=== PATIENT | female | born 1985 | race Caucasian/White ===

== ENCOUNTER → 2017-04-16 | Outpatient (CLI) | payer OTHER ==
[~2017-04-16] MED LIST: IOPAMIDOL (ISOVUE-300) 100 ML BTL ONE
== END ==
LOC: FIMAGING 14:14
PROVIDERS: ATTEND Ophthalmology Retina Specialist
DX: H02.841 Edema of right upper eyelid (principal); H54.7 Unspecified visual loss
CPT/HCPCS: Q9967

== ENCOUNTER → 2017-09-03 | Outpatient (CLI) | payer OTHER | LOC: FIMAGING 13:18 | PROVIDERS: ATTEND Physician Assistant Medical | DX: Z30.431 Encounter for routine checking of intrauterine contraceptive device (principal) ==

== ENCOUNTER 2018-03-20 20:41 | Emergency (ER) | payer OTHER ==
--- NOTE | 2018-03-20 20:57 | EDPHY ---
H & P Stated Complaint: RLQ PAIN, RADIATING TO BACK X 11 HOURS - Personal History LMP (Females 10-55): Unknown Current Tetanus Diphtheria and Acellular Pertussis (TDAP): Yes - Medical/Surgical History Hx Asthma: No Hx Chronic Respiratory Disease: No Hx Diabetes: No Hx Cardiac Disease: No Hx Renal Disease: No Hx Cirrhosis: No Hx Alcoholism: No Hx HIV/AIDS: No Hx Splenectomy or Spleen Trauma: No Other PMH: R EYE SURGERIES - Social History Smoking Status: Never smoked Time Seen by Provider: 03/20/18 20:56 Constitutional: Initial Vital Signs Temperature (C) 36.4 C 03/20/18 20:45 Heart Rate 86 03/20/18 20:45 Respiratory Rate 16 03/20/18 20:45 Blood Pressure 130/79 H 03/20/18 20:45 O2 Sat (%) 97 03/20/18 20:45 O2 Delivery Mode Room Air Allergies/Adverse Reactions: No Known Allergies Allergy (Verified 03/20/18 20:44) Home Medications: Medication Instructions Recorded NK [No Known Home Meds] 03/20/18 Medical Decision Making - Diagnostics Imaging Results: Imaging Impressions Abdomen Ultrasound 03/20/18 21:12 Impression: Possible mesenteric adenitis. No indirect evidence of appendicitis. Results discussed with Dr. Rodriguez at 10:39 PM. Pelvic/Renal Ultrasound 03/20/18 21:12 Impression: 1. Prominent pelvic venous structures raise the possibility of pelvic venous congestion syndrome. 2. Small amount of free fluid adjacent to the right ovary. Perhaps this patient has ruptured a small cyst. Results discussed with Dr. Monzon at 10:[address] 03/20/18 23:01 Impression: 1. Proximal colonic constipation. 2. Normal appendix . 3. 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 4. Right adnexal cyst (dominant follicle) with a small amount of adjacent free fluid confirmed. 5. Incidental liver cysts and nonobstructive nephrolithiasis. Results discussed with Dr. Rodriguez at 11:33 PM. General information for patients regarding this examination can be found at [email or web address]. If you have questions or comments about this report, please contact me at [phone] (hospital) or [phone] (cell). ED Course/Re-evaluation: CHIEF COMPLAINT: Right lower abdominal pain HISTORY OF PRESENT ILLNESS: The patient is a 32 y/o female complaining of sudden onset right lower abdominal pain, onset 11 hours ago. She initially thought that this pain was due to gas. However, the pain persisted and she had to leave work early. She was able to drive home, but felt uncomfortable due to the consistent pain. When she presses on her abdomen the pain increases and is always in her right lower quadrant even if she doesn't press there. Last PO was at 18:00, 3 hours ago. She was hungry, but didn't eat as much as normal due to the discomfort. No fever , headache, chest pain, shortness of breath, urinary or bowel complaints, numbness, paresthesias. REVIEW OF SYSTEMS: A comprehensive 10 system review of systems is otherwise negative aside from elements mentioned in the history of present illness and medical decision making. PHYSICAL EXAM: HR, BP, O2 Sat, RR. Temp noted General Appearance: Alert, well hydrated, appropriate, and non-toxic appearing. Head: Atraumatic without scalp tenderness or obvious injury Eyes: Pupils equal, round, reactive to light and accommodation, EOMI, no trauma , no injection. Ears: Clear bilaterally, no perforation, normal landmarks Nose: Atraumatic, no rhinorrhea, clear. Throat: There is no erythema or exudates, no lesions, normal tonsils, mucus membranes moist. Neck: Supple, 2+ carotid upstroke, nontender, no lymphadenopathy. Respiratory: No retractions, no distress, no wheezes, and no accessory muscle use. Lungs are clear to auscultation bilaterally. Cardiovascular: Regular rate and rhythm, no murmurs, rubs, or gallops. Bilateral carotid, radial, dorsalis pedis, and posterior tibial pulses intact. Good capillary refill all extremities. Gastrointestinal: RLQ tenderness to palpation, positive McBurney's point, positive peritoneal signs. Abdomen is soft, non-distended, no masses, no rebound , no guarding. Musculoskeletal: Normal active ROM of all extremities, atraumatic. Neurological: Alert, appropriate, and interactive. The patient has normal DTRs and non-focal cranial nerves, motor, sensory, and cerebellar exam. Skin: No rashes, good turgor, no nodules on palpation. Past medical history: Denies Past surgical history: Right eye surgeries Family history: Denies Social history: Lives in [place], , employed DIAGNOSTICS/PROCEDURES/CRITICAL CARE TIME: Abdominal and pelvic US: DIFFERENTIAL DIAGNOSIS: The differential diagnosis for the patient's abdominal pain included but was not limited to ovarian cyst, pelvic inflammatory disease, ovarian torsion, urinary tract infection, ectopic , cholecystitis, and appendicitis. MEDICAL DECISION MAKING: The patient is a 32 y/o female complaining of sudden onset right lower abdominal pain, onset 11 hours ago. On exam she has right lower quadrant tenderness with palpation. She does have a positive McBurney's point. Labs and abdominal and pelvic US ordered; 1L IV NS, 30mg IV Toradol, and 100mcg IV Fentanyl administered. 924: Patient has a WBC of 10.95 ; imaging still pending. 2239: Patient care turned over to Dr. Sanabria at shift change. Imaging studies still pending. (Yossi Monzon) 230: Patient was signed over to me at 11:00 p.m.. Follow-up patient's ultrasounds. The patient has had 2 ultrasounds 1 that was looking for her appendix and the other that was evaluating her ovaries. Appendix was unable to be visualized on the ultrasound, however the ultrasound of her pelvis did show a small right ovarian cyst with a small amount of free fluid. This may be the cause of her pain however I went and talked to her extensively and reexamine there and she still has significant right lower quadrant abdominal pain. We had a discussion about further imaging including a CT scan abdomen pelvis with IV contrast a additionally rule out appendicitis given her ultrasound did not show this. After long discussion risk versus benefit was discussed she would like to proceed with CT scan to rule out appendicitis. Additionally the patient states that she still has significant pain. I have ordered her 2nd L fluid as well as 0.5 mg IV Dilaudid. She initially declined any pain medication. She did received Toradol earlier. CT scan abdomen pelvis with IV contrast called to me by Dr. Malave. The patient has a normal appendix visualized. I updated the patient about these results. Clinically I feel that her pain is due to a ruptured ovarian cyst. Explain should follow up with OBGYN. Also there is some concern about pelvic congestion syndrome on ultrasound and CT. I have discussed this with the patient. I do not believe this is causing her acute sudden-onset pain. Recommend follow up with OBGYN Return precautions discussed with the patient she understands return emergency room if develops worsening abdominal pain, pelvic pain, vomiting, fever, not doing well. Patient requesting and [place] take-home pack which I will provide for her. She feels much better after IV Dilaudid. Abdomen is soft nontender at this time. She feels comfortable going home. I discussed return precautions with her she understands return emergency room she develops worsening abdominal pain, pelvic pain, fever, vomiting, not doing well. (Nilay Sanabria) - Data Points Laboratory Results: Laboratory Results 03/20/18 21:05 03/20/18 21:05 03/20/18 03/20/18 03/20/18 21:58 21:41 21:05 WBC RBC Hgb POC Hgb 17.0 gm/dL H gm/dL (12.6-16.3) Hct POC Hct 50 % H % (38-47) MCV MCH MCHC RDW Plt Count MPV Neut % (Auto) Lymph % (Auto) Pender % (Auto) Eos % (Auto) Baso % (Auto) Nucleat RBC Rel Count Absolute Neuts (auto) Absolute Lymphs (auto) Absolute Monos (auto) Absolute Eos (auto) Absolute Basos (auto) Absolute Nucleated RBC Immature Gran % Immature Gran # POC Sodium 142 mEq/L mEq/L (135-145) Sodium POC Potassium 3.7 mEq/L mEq/L (3.3-5.0) Potassium POC Chloride 104 mEq/L mEq/L (97-110) Chloride Carbon Dioxide POC Total CO2 25 mEq/L mEq/L (22-31) Anion Gap POC BUN 16 mg/dL mg/dL (7-23) BUN Creatinine POC Creatinine 0.8 mg/dL mg/dL (0.6-1.0) Estimated GFR Glucose POC Glucose 92 mg/dL mg/dL (70-100) Calcium Total Bilirubin Conjugated Bilirubin Unconjugated Bilirubin AST ALT Alkaline Phosphatase Total Protein Albumin Lipase Beta HCG, Qual NEGATIVE Urine Color PALE YELLOW Urine Appearance CLEAR Urine pH 6.0 (5.0-7.5) Ur Specific [place] 1.011 (1.002-1.030) Urine Protein NEGATIVE (NEGATIVE) Urine Ketones NEGATIVE (NEGATIVE) Urine Blood NEGATIVE (NEGATIVE) Urine Nitrate NEGATIVE (NEGATIVE) Urine Bilirubin NEGATIVE (NEGATIVE) Urine Urobilinogen NEGATIVE EU EU (0.2-1.0) Ur Leukocyte Esterase NEGATIVE (NEGATIVE) Urine RBC 1-3 /hpf /hpf (0-3) Urine WBC 1-3 /hpf /hpf (0-3) Ur Epithelial Cells TRACE /lpf /lpf (NONE-1+) Urine Bacteria TRACE /hpf H /hpf (NONE SEEN) Urine Mucus TRACE /lpf /lpf (NONE-1+) Urine Glucose NEGATIVE (NEGATIVE) 03/20/18 03/20/18 21:05 21:05 WBC 10.95 10^3/uL H 10^3/uL (3.80-9.50) RBC 4.77 10^6/uL 10^6/uL (4.18-5.33) Hgb 14.8 g/dL g/dL (12.6-16.3) POC Hgb Hct 44.8 % % (38.0-47.0) POC Hct MCV 93.9 fL fL (81.5-99.8) MCH 31.0 pg pg (27.9-34.1) MCHC 33.0 g/dL g/dL (32.4-36.7) RDW 12.7 % % (11.5-15.2) Plt Count 242 10^3/uL 10^3/uL (150-400) MPV 9.8 fL fL (8.7-11.7) Neut % (Auto) 56.8 % % (39.3-74.2) Lymph % (Auto) 35.9 % % (15.0-45.0) Pender % (Auto) 5.8 % % (4.5-13.0) Eos % (Auto) 0.7 % % (0.6-7.6) Baso % (Auto) 0.5 % % (0.3-1.7) Nucleat RBC Rel Count 0.0 % % (0.0-0.2) Absolute Neuts (auto) 6.21 10^3/uL 10^3/uL (1.70-6.50) Absolute Lymphs (auto) 3.93 10^3/uL H 10^3/uL (1.00-3.00) Absolute Monos (auto) 0.64 10^3/uL 10^3/uL (0.30-0.80) Absolute Eos (auto) 0.08 10^3/uL 10^3/uL (0.03-0.40) Absolute Basos (auto) 0.06 10^3/uL 10^3/uL (0.02-0.10) Absolute Nucleated RBC 0.00 10^3/uL 10^3/uL (0-0.01) Immature Gran % 0.3 % % (0.0-1.1) Immature Gran # 0.03 10^3/uL 10^3/uL (0.00-0.10) POC Sodium Sodium 142 mEq/L mEq/L (135-145) POC Potassium Potassium 4.2 mEq/L mEq/L (3.5-5.2) POC Chloride Chloride 106 mEq/L mEq/L (97-110) Carbon Dioxide 23 mEq/l mEq/l (22-31) POC Total CO2 Anion Gap 13 mEq/L mEq/L (6-14) POC BUN BUN 17 mg/dL mg/dL (7-23) Creatinine 0.8 mg/dL mg/dL (0.6-1.0) POC Creatinine Estimated GFR > 60 Glucose 97 mg/dL mg/dL (70-100) POC Glucose Calcium 10.0 mg/dL mg/dL (8.5-10.4) Total Bilirubin 0.4 mg/dL mg/dL (0.1-1.4) Conjugated Bilirubin 0.2 mg/dL mg/dL (0.0-0.5) Unconjugated Bilirubin 0.2 mg/dL mg/dL (0.0-1.1) AST 21 IU/L IU/L (14-46) ALT 19 IU/L IU/L (9-52) Alkaline Phosphatase 76 IU/L IU/L (38-126) Total Protein 8.7 g/dL H g/dL (6.3-8.2) Albumin 5.2 g/dL H g/dL (3.5-5.0) Lipase 106 IU/L IU/L (23-300) Beta HCG, Qual Urine Color Urine Appearance Urine pH Ur Specific [place] Urine Protein Urine Ketones Urine Blood Urine Nitrate Urine Bilirubin Urine Urobilinogen Ur Leukocyte Esterase Urine RBC Urine WBC Ur Epithelial Cells Urine Bacteria Urine Mucus Urine Glucose Medications Given: Discontinued Medications Fentanyl (Sublimaze) 100 mcg IVP EDNOW ONE Stop: 03/20/18 21:13 Last Admin: 03/20/18 23:05 Dose: Not Given Hydromorphone HCl (Dilaudid) 0.5 mg IVP EDNOW ONE Stop: 03/20/18 23:02 Last Admin: 03/20/18 23:04 Dose: 0.5 mg Sodium Chloride (Ns) 1,000 mls @ 0 mls/hr IV EDNOW ONE; Wide Open PRN Reason: Protocol Stop: 03/20/18 21:13 Last Admin: 03/20/18 21:32 Dose: 1,000 mls Ketorolac Tromethamine (Toradol) 30 mg IVP EDNOW ONE Stop: 03/20/18 21:13 Last Admin: 03/20/18 21:32 Dose: 30 mg Point of Care Test Results: Chemistry 03/20/18 21:41 POC Sodium 142 mEq/L mEq/L (135-145) POC Potassium 3.7 mEq/L mEq/L (3.3-5.0) POC Chloride 104 mEq/L mEq/L (97-110) POC Total CO2 25 mEq/L mEq/L (22-31) POC BUN 16 mg/dL mg/dL (7-23) POC Creatinine 0.8 mg/dL mg/dL (0.6-1.0) POC Glucose 92 mg/dL mg/dL (70-100) ISTAT H&H 03/20/18 21:41 POC Hgb 17.0 gm/dL H gm/dL (12.6-16.3) POC Hct 50 % H % (38-47) Departure - Departure Disposition: Home, Routine, Self-Care Clinical Impression: Abdominal pain, Ovarian cyst, Ruptured ovarian cyst Condition: Good Instructions: Ovarian Cyst (ED), Acute Abdominal Pain (ED), Pelvic Pain in Women (ED), Abdominal Pain (ED), Ruptured Ovarian Cyst (ED) Referrals: Isabelle Manjarrez MD [Primary Care Provider] - As per Instructions Angela Gaytan MD [Medical Doctor] - As per Instructions Report Scribed for: Yossi Monzon Report Scribed by: Peggy Pickett Date of Report: 03/20/18 Time of Report: 20:58
[2018-03-20] MEDS ORDERED: KETOROLAC 30 MG/1 ML SDV IVP ONE (21:12)
[2018-03-20] MEDS ORDERED: fentaNYL 100 MCG/2 ML INJ IVP ONE (21:12)
[2018-03-20] MEDS ORDERED: NS 1,000 ML IV ONE (21:12)
[2018-03-20 21:22] LABS: PLATELET COUNT 242 10^3/uL (150-400)
[2018-03-20] MEDS ORDERED: ONDANSETRON 4 MG/2 ML VIAL ONE (22:46)
[2018-03-20] MEDS ORDERED: HYDROmorphONE/DILAUDID 2 MG/ML INJ IVP ONE (23:01)
[2018-03-20] MEDS ORDERED: HYDROmorphONE/DILAUDID 1 MG/ML INJ ONE (23:01)
[2018-03-20] MEDS ORDERED: IOHEXOL 300 mgI/ML (OMNIPAQUE) 150 ML BTL IV ONE (23:02)
[2018-03-21] MEDS ORDERED: HYDROCOD/APAP 5/325 PREPACK#6 BTL TAKEHOME ONE (00:05)
[2018-03-21 00:15] VITALS: BP 115/75
== END 2018-03-21 00:15 | disposition home or self-care (01) ==
DX: R10.31 Right lower quadrant pain (principal); N83.201 Unspecified ovarian cyst, right side; E86.9 Volume depletion, unspecified; N94.89 Other specified conditions associated with female genital organs and menstrual cycle
CPT/HCPCS: 82435-PO; 82565-PO; 82947-PO; 84132-PO; 84295-PO; 84520-PO; 85014-ER; 96374; J1170; J1885; J2405; Q9967